=== PATIENT | female | born 1945 ===

== ENCOUNTER 2019-08-28 05:30 | Day surgery (SDC) | payer OTHER | END 2019-08-28 10:05 | disposition home or self-care (01) | LOC: AMB-ENDOS 05:30 → ADM 14:00 → EDBD 14:00 | DX: K57.32 Diverticulitis of large intestine without perforation or abscess without bleeding (principal); K57.30 Diverticulosis of large intestine without perforation or abscess without bleeding; K64.1 Second degree hemorrhoids ==